=== PATIENT | female | born 1950 | race Caucasian/White ===

== ENCOUNTER 2018-11-24 18:13 | Outpatient (REF) | payer BC, SELFPAY ==
[2018-11-24 22:44] LABS: Cholesterol 190 mg/dL (50-200); HDL Cholesterol 46 mg/dL (40-60); LDL CHOLESTEROL 119 mg/dL (<100); TSH 1.83 uIU/mL (0.358-3.74); Triglyceride 146 mg/dL (30-150)
== END 2018-11-24 18:33 ==
LOC: NCHCN 18:13
PROVIDERS: PCP Nurse Practitioner Family; Visit Provider Registered Nurse
DX: Z00.00 Encounter for general adult medical examination without abnormal findings (principal); E03.9 Hypothyroidism, unspecified
CPT/HCPCS: 80061; 83721; 84443

== ENCOUNTER 2020-05-23 12:35 | Outpatient (REF) | payer BC, SELFPAY ==
[2020-05-23 20:40] LABS: Calculated LDL 117 mg/dL (<100); Cholesterol 187 mg/dL (<200); HDL Cholesterol 48 mg/dL (40-60); Triglyceride 111 mg/dL (<150)
== END 2020-05-23 12:55 ==
LOC: NCHCN 12:35
PROVIDERS: PCP Nurse Practitioner Family; Visit Provider Registered Nurse
DX: E03.9 Hypothyroidism, unspecified (principal); Z00.00 Encounter for general adult medical examination without abnormal findings
CPT/HCPCS: 80061; 84443

== ENCOUNTER 2021-01-31 09:08 | Outpatient (REF) | payer BC, SELFPAY ==
[2021-01-31 13:42] LABS: TSH 1.68 uIU/mL (0.36-3.74)
== END 2021-01-31 09:09 | disposition home or self-care (01) ==
LOC: NCHCN 09:08
PROVIDERS: PCP Nurse Practitioner Family; Visit Provider Registered Nurse
DX: E03.9 Hypothyroidism, unspecified (principal)
CPT/HCPCS: 84443

== ENCOUNTER 2021-04-17 17:28 | Outpatient (REF) | payer BC, SELFPAY ==
[2021-04-17 22:24] LABS: Anion Gap 7.2 mmol/L (3-11); BUN 18 mg/dL (7-18); CO2 29.8 mmol/L (21.0-32.0); Calcium 8.9 mg/dL (8.5-10.1); Chloride 108 mmol/L (98-107); Estimated GFR 54.97 (mL/min/1.73m2); Glucose 107 mg/dL (74-106); Sodium 145 mmol/L (136-145)
[2021-04-17 22:25] LABS: Hemoglobin A1C 5.5 % (<5.7)
== END 2021-04-17 17:29 | disposition home or self-care (01) ==
LOC: NCHCN 17:28
PROVIDERS: PCP Nurse Practitioner Family; Visit Provider Registered Nurse
DX: Z00.00 Encounter for general adult medical examination without abnormal findings (principal); R73.9 Hyperglycemia, unspecified; Z83.3 Family history of diabetes mellitus
CPT/HCPCS: 80048; 83036

== ENCOUNTER 2022-03-13 10:44 | Outpatient (REF) | payer BC, SELFPAY ==
[2022-03-13 16:09] LABS: Anion Gap 7.5 mmol/L (3-11); BUN 19 mg/dL (7-18); CO2 27.5 mmol/L (21.0-32.0); CREATININE 0.6 mg/dL (0.55-1.02); Calcium 8.9 mg/dL (8.5-10.1); Chloride 105 mmol/L (98-107); Glucose 86 mg/dL (74-106); Potassium 4.1 mmol/L (3.5-5.1); Sodium 140 mmol/L (136-145); TSH 2.38 uIU/mL (0.36-3.74)
[2022-03-13 16:26] LABS: Calculated LDL 126 mg/dL (<100); Cholesterol 198 mg/dL (<200); HDL Cholesterol 54 mg/dL (40-60); Triglyceride 93 mg/dL (<150)
== END 2022-03-13 10:45 | disposition home or self-care (01) ==
LOC: NCHCN 10:44
PROVIDERS: PCP Nurse Practitioner Family; Visit Provider Registered Nurse
DX: Z00.00 Encounter for general adult medical examination without abnormal findings (principal); E03.9 Hypothyroidism, unspecified; R03.0 Elevated blood-pressure reading, without diagnosis of hypertension
CPT/HCPCS: 80048; 80061; 84443

== ENCOUNTER 2023-04-22 10:19 | Outpatient (REF) | payer BC, SELFPAY ==
[2023-04-22 16:30] LABS: Anion Gap 10.7 mmol/L (3-11); BUN 15 mg/dL (7-18); CO2 25.3 mmol/L (21.0-32.0); CREATININE 0.8 mg/dL (0.55-1.02); Calcium 8.7 mg/dL (8.5-10.1); Calculated LDL 104 mg/dL (<100); Chloride 107 mmol/L (98-107); Cholesterol 174 mg/dL (<200); Estimated GFR 78.72 (mL/min/1.73m2); Glucose 94 mg/dL (74-106); HDL Cholesterol 57 mg/dL (40-60); Potassium 4.1 mmol/L (3.5-5.1); Sodium 143 mmol/L (136-145); TSH 1.86 uIU/mL (0.36-3.74); Triglyceride 68 mg/dL (<150)
== END 2023-04-22 10:20 | disposition home or self-care (01) ==
LOC: NCHCN 10:19
PROVIDERS: PCP Nurse Practitioner Family; Visit Provider Registered Nurse
DX: Z00.00 Encounter for general adult medical examination without abnormal findings (principal); E03.9 Hypothyroidism, unspecified
CPT/HCPCS: 80048; 80061; 84443

== ENCOUNTER 2024-02-29 20:47 | Outpatient (REF) | payer MEDICARE, BC, SELFPAY ==
[2024-02-29 19:46] LABS: Abs Immature Grans 0.02 10^3/uL (0.0-0.06); Absolute Basophil Count 0.03 10^3/uL (0.0-0.2); Absolute Eosinophil Count 0.23 10^3/uL (0.0-0.7); Absolute Lymphocyte Count 1.38 10^3/uL (1.2-3.4); Absolute Monocyte Count 0.46 10^3/uL (0.1-0.8); Absolute Neutrophil Count 4.05 10^3/uL (1.2-6.7); Basophils % 0.5 %; Eosinophils % 3.7 %; HCT 50.9 % (36.0-46.0); HGB 16.6 g/dL (11.2-15.7); Immature Grans % 0.3 %; Lymphocytes % 22.4 %; MCH 32.5 pg (27.0-33.0); MCHC 32.6 % (32.0-36.0); MCV 100 fL (80-95); MPV 11.3 fL (8.0-11.0); Monocytes % 7.5 %; Neutrophils % 65.6 %; Platelet Count 184 10^3/uL (130-400); RBC 5.11 10^6/uL (3.93-5.22); RDW 12.9 % (11.7-14.6); RDW-SD 47.5 fL; WBC 6.17 10^3/uL (4.4-10.8)
[2024-02-29 20:09] LABS: Anion Gap 9.8 mmol/L (3-11); BUN 20 mg/dL (7-18); CO2 29.2 mmol/L (21.0-32.0); CREATININE 0.7 mg/dL (0.55-1.02); Chloride 105 mmol/L (98-107); Estimated GFR 91.83 (mL/min/1.73m2); Ferritin 138 ng/mL (8-252); Glucose 92 mg/dL (74-106); Potassium 3.9 mmol/L (3.5-5.1); Sodium 144 mmol/L (136-145); TSH (W/Ref FT4) 2.21 uIU/mL (0.36-3.74)
[2024-02-29 21:20] LABS: Calculated LDL 107 mg/dL (<100); Cholesterol 194 mg/dL (<200); HDL Cholesterol 63 mg/dL (40-60); Iron 93 ug/dL (50-170); Total Iron Binding Capacity 342 ug/dL (250-450); Transferrin Sat 27 % (15-50); Triglyceride 123 mg/dL (<150)
== END 2024-02-29 20:48 | disposition home or self-care (01) ==
LOC: LBN 20:47
PROVIDERS: PCP Nurse Practitioner Family; Visit Provider Family Medicine
DX: L60.3 Nail dystrophy (principal); R63.4 Abnormal weight loss; E78.5 Hyperlipidemia, unspecified; E03.9 Hypothyroidism, unspecified
CPT/HCPCS: 80048; 80061; 82728; 83540; 83550; 84443; 85025

== ENCOUNTER 2025-04-19 10:56 | Outpatient (REF) | payer MEDICARE, BC, SELFPAY ==
[2025-04-19 16:01] LABS: Anion Gap 8.4 mmol/L (3-11); BUN 20 mg/dL (7-18); CO2 26.6 mmol/L (21.0-32.0); Calcium 9.1 mg/dL (8.5-10.1); Chloride 105 mmol/L (98-107); Estimated GFR 94.72 (mL/min/1.73m2); Glucose 83 mg/dL (74-106); Potassium 3.9 mmol/L (3.5-5.1); Sodium 140 mmol/L (136-145); TSH (W/Ref FT4) 1.81 uIU/mL (0.36-3.74)
== END 2025-04-19 10:57 | disposition home or self-care (01) ==
LOC: NCHCN 10:56
PROVIDERS: PCP Nurse Practitioner Family; Visit Provider Family Medicine
DX: E03.9 Hypothyroidism, unspecified (principal); I10 Essential (primary) hypertension
CPT/HCPCS: 80048; 84443